=== PATIENT | female | born 1990 | race Caucasian/White ===

== ENCOUNTER 2021-12-03 05:45 | Observation (INO) | payer SELFPAY ==
[~2021-12-03] VITALS: Ht 152 cm; Wt 95.3 kg
[2021-12-03 07:00] VITALS: BP 113/71
--- NOTE | 2021-12-03 08:46 | NUR ---
PATIENT HAS BEEN SCREENED AND CATEGORIZED LOW NUTRITION RISK. PATIENT WILL BE SEEN WITHIN 7 DAYS OF ADMISSION. 12/10/21 REVIEWED BY RU DEL [address]
== END 2021-12-03 08:40 | disposition left against medical advice (07) ==
LOC: MFCC 05:45
PROVIDERS: ADMIT Obstetrics & Gynecology; ATTEND Obstetrics & Gynecology
DX: O62.9 Abnormality of forces of labor, unspecified (principal); Z20.822 Contact with and (suspected) exposure to COVID-19; Z3A.00 Weeks of gestation of pregnancy not specified
CPT/HCPCS: G0378

== ENCOUNTER 2021-12-08 17:32 | Inpatient (IN) | payer MEDICAID ==
[~2021-12-08] VITALS: Ht 162.6 cm; Wt 76.0 kg
[2021-12-08] MEDS ORDERED: LACTATED RINGERS 1,000 ML IV SCH ×2 (18:00→18:45)
[2021-12-08] MEDS ORDERED: METHYLERGONOVINE 0.2 MG/ML AMP IM PRN ×2 (18:45→19:25)
[2021-12-08] MEDS ORDERED: MORPHINE SULFATE 5 MG/ML VIAL IVP PRN ×2 (18:45→19:45)
[2021-12-08] MEDS ORDERED: HYDROcodone/APAP 5/325 MG 1 TAB TAB PO PRN ×2 (19:25)
[2021-12-08] MEDS ORDERED: MEASLES, MUMPS, AND RUBELLA 1 VIAL SQVAC ONE (19:25)
[2021-12-08] MEDS ORDERED: OXYTOCIN 10 UNITS/ML VIAL IM PRN (19:25)
[2021-12-08] MEDS ORDERED: DOCUSATE SODIUM 100 MG GELCAP PO PRN (19:25)
[2021-12-08] MEDS ORDERED: IBUPROFEN 800 MG TAB PO PRN (19:25)
[2021-12-08] MEDS ORDERED: BENZOCAINE/MENTHOL 20%-0.5% 60 GM CAN TP PRN (19:25)
[2021-12-08] MEDS ORDERED: METHYLERGONOVINE 0.2 MG TAB PO PRN (19:25)
[2021-12-08] MEDS ORDERED: SIMETHICONE 80 MG TAB.CHEW PO PRN (19:25)
[2021-12-08] MEDS ORDERED: bisacodyL 5 MG TABEC PO PRN (19:25)
[2021-12-08] MEDS ORDERED: IBUPROFEN 600 MG TAB PO PRN (19:25)
[2021-12-08] MEDS ORDERED: MORPHINE SULFATE 10 MG/ML VIAL ONE ×2 (20:03→23:07)
[2021-12-08] MEDS: ONDANSETRON 4 MG/2 ML VIAL IVP PRN (20:30)
[2021-12-08 22:00] LABS: BASOPHILS # (AUTO) 0.1 K/uL (0.00-0.22); BASOPHILS % (AUTO) 0.8 % (0.0-2.0); EOSINOPHILS % (AUTO) 0.5 % (0.0-4.0); HEMATOCRIT 27.8 % (36-48); LYMPHOCYTES # (AUTO) 1.6 K/uL (2.5-16.5); LYMPHOCYTES % (AUTO) 17.8 % (20.5-51.1); MEAN CORPUSCULAR HEMOGLOBIN 24 pg (27-31); MEAN CORPUSCULAR HGB CONC 32 g/dL (33-37); MEAN CORPUSCULAR VOLUME 72.6 fL (80-94); MONOCYTES # (AUTO) 0.4 K/uL (0.8-1.0); MONOCYTES % (AUTO) 4.8 % (1.7-9.3); NEUTROPHILS # (AUTO) 6.8 K/uL (1.8-7.7); NEUTROPHILS % (AUTO) 76.1 % (42.2-75.2); PLATELET COUNT (AUTO) 303 K/uL (140-450); RED BLOOD CELL COUNT(AUTO) 3.83 MIL/uL (4.20-5.40); RED CELL DISTRIBUTION WIDTH 15.8 % (11.6-13.7); WHITE BLOOD COUNT (AUTO) 8.9 K/uL (4.8-10.8)
[2021-12-08 22:16] LABS: APPEARANCE,URINE CLEAR (CLEAR); BARBITURATE, URINE NEGATIVE ng/ml (NEG <=200); BENZODIAZEPINE, URINE NEGATIVE ng/mL (NEG <=200); BILIRUBIN,URINE 2+ (NEGATIVE); BLOOD, URINE 3+ (NEGATIVE); CANNABINOID, URINE NEGATIVE ng/mL (NEG <=50); COCAINE, URINE NEGATIVE ng/mL (NEG <=300); COLOR,URINE YELLOW (YELLOW); LEUKOCYTE ESTERASE ,URINE TRACE (NEGATIVE); NITRITE, URINE NEGATIVE (NEGATIVE); OPIATE, URINE POSITIVE ng/mL (NEG <=2000); PHENCYCLIDINE SCREEN,URINE NEGATIVE ng/mL (NEG <=25); UGLUCOSE NEGATIVE (NEGATIVE)
[2021-12-08 22:18] LABS: PROTHROMBIN TIME 9.2 secs (10.8-13.4)
[2021-12-08 22:22] LABS: ANION GAP 14.7 (8-16); CARBON DIOXIDE 21.6 mmol/L (21-32); CREATININE 0.8 mg/dL (0.6-1.3); POTASSIUM 4.3 mmol/L (3.5-5.1); TOTAL BILIRUBIN 0.6 mg/dL (0.0-1.0)
[2021-12-08 22:37] LABS: RBC,URINE >100 /HPF (0-5); WBC,URINE 20-60 /HPF (0-5); YEAST,URINE Few /HPF (None Seen)
[2021-12-09 00:16] VITALS: BP 111/78
[2021-12-09] MEDS ORDERED: MORPHINE SULFATE 10 MG/ML VIAL ONE (02:26)
[2021-12-09 02:34] VITALS: BP 115/67
[2021-12-09] MEDS: ONDANSETRON 4 MG/2 ML VIAL IVP PRN (02:35)
--- NOTE | 2021-12-09 06:27 | NUR ---
PATIENT HAS BEEN SCREENED AND CATEGORIZED LOW NUTRITION RISK. PATIENT WILL BE SEEN WITHIN 7 DAYS OF ADMISSION. 12/15/[address]
[2021-12-09] MEDS ORDERED: ceFAZolin 2,000 MG VIAL ONE (06:29)
[2021-12-09] MEDS ORDERED: METOCLOPRAMIDE 10 MG/2 ML INJ VIAL ONE (07:00)
[2021-12-09] MEDS ORDERED: ONDANSETRON 4 MG/2 ML VIAL ONE (07:00)
[2021-12-09] MEDS ORDERED: GLYCOPYRROLATE 0.2 MG/ML VIAL ONE (07:00)
[2021-12-09] MEDS ORDERED: PHENYLEPHRINE 10 MG/ML VIAL ONE (07:00)
[2021-12-09] MEDS ORDERED: MORPHINE PRES FREE 10 MG/10 ML AMP IV ONE (07:01)
[2021-12-09] MEDS ORDERED: MIDAZOLAM 2 MG/2 ML VIAL ONE (07:02)
[2021-12-09] MEDS ORDERED: KETAMINE 500 MG/5 ML VIAL ONE (07:02)
[2021-12-09] MEDS ORDERED: OXYTOCIN 20 UNITS/LR PREMIX 1,000 ML IV ONE ×2 (07:25→17:02)
[2021-12-09] MEDS ORDERED: NALBUPHINE 10 MG/ML AMP IVP PRN (08:25)
[2021-12-09] MEDS ORDERED: ONDANSETRON 4 MG/2 ML VIAL IVP PRN (08:25)
[2021-12-09] MEDS ORDERED: NALOXONE 0.4 MG/ML VIAL IVP PRN ×3 (08:25)
[2021-12-09] MEDS: diphenhydrAMINE 50 MG/ML VIAL IVP PRN ×3 (08:53→22:08)
[2021-12-09] MEDS: OXYTOCIN 20 UNITS in LACTATED RINGERS 1,000 ML IV SCH ×2 (08:55→09:20)
[2021-12-09] MEDS: KETOROLAC 30 MG/ML VIAL IM/IVP SCH ×3 (12:02→23:53)
[2021-12-10] MEDS ORDERED: OXYTOCIN 20 UNITS/LR PREMIX 1,000 ML IV ONE (01:31)
[2021-12-10] MEDS ORDERED: HYDROcodone/APAP 5/325 MG 1 TAB TAB PO PRN (02:00)
[2021-12-10] MEDS ORDERED: IBUPROFEN 800 MG TAB PO PRN (02:00)
[2021-12-10 06:44] LABS: BASOPHILS % (AUTO) 0.2 % (0.0-2.0); EOSINOPHILS # (AUTO) 0.1 K/uL (0-0.4); EOSINOPHILS % (AUTO) 0.7 % (0.0-4.0); HEMOGLOBIN 7.2 g/dL (12.0-16.0); LYMPHOCYTES % (AUTO) 13.7 % (20.5-51.1); MEAN CORPUSCULAR HEMOGLOBIN 24 pg (27-31); MEAN CORPUSCULAR HGB CONC 33 g/dL (33-37); MEAN CORPUSCULAR VOLUME 72.3 fL (80-94); MONOCYTES # (AUTO) 0.5 K/uL (0.8-1.0); NEUTROPHILS # (AUTO) 5.9 K/uL (1.8-7.7); NEUTROPHILS % (AUTO) 78.4 % (42.2-75.2); PLATELET COUNT (AUTO) 207 K/uL (140-450); RED BLOOD CELL COUNT(AUTO) 3.04 MIL/uL (4.20-5.40); RED CELL DISTRIBUTION WIDTH 15.3 % (11.6-13.7); WHITE BLOOD COUNT (AUTO) 7.6 K/uL (4.8-10.8)
[2021-12-10] MEDS ORDERED: SODIUM FERRIC GLUCONATE 125 MG in NACL 0.9% 100 ML IV SCH (10:20)
[2021-12-10] MEDS: HYDROcodone/APAP 5/325 MG 1 TAB TAB PO PRN ×2 (12:17→20:59)
[2021-12-10] MEDS: SODIUM FERRIC GLUCONATE 125 MG in NACL 0.9% 100 ML IV SCH (12:31)
[2021-12-11] MEDS ORDERED: CAMERA MC ONE ×2 (03:57→06:53)
[2021-12-11 07:37] LABS: HEMATOCRIT 23.9 % (36-48); HEMOGLOBIN 7.8 g/dL (12.0-16.0)
[2021-12-11] MEDS: HYDROcodone/APAP 5/325 MG 1 TAB TAB PO PRN (11:45)
[2021-12-11] MEDS: SODIUM FERRIC GLUCONATE 125 MG in NACL 0.9% 100 ML IV SCH (11:47)
== END 2021-12-11 19:00 | disposition home or self-care (01) | DRG 540 ==
LOC: MFCC 17:32 → OBSVTOIN 12-09 07:50 → MFCC 12-09 09:25
PROVIDERS: ADMIT Obstetrics & Gynecology; ATTEND Obstetrics & Gynecology
PROC: 10D00Z1 Extraction of Products of Conception, Low, Open Approach (ICD-10-PCS; principal; 2021-12-09 07:00)
DX: O34.211 Maternal care for low transverse scar from previous cesarean delivery (principal); D62 Acute posthemorrhagic anemia; D50.9 Iron deficiency anemia, unspecified; O32.1XX0 Maternal care for breech presentation, not applicable or unspecified; O42.913 Preterm premature rupture of membranes, unspecified as to length of time between rupture and onset of labor, third trimester; Z20.822 Contact with and (suspected) exposure to COVID-19; O77.0 Labor and delivery complicated by meconium in amniotic fluid; Z37.0 Single live birth; Z3A.36 36 weeks gestation of pregnancy; O99.02 Anemia complicating childbirth
CPT/HCPCS: G0378 ×7; 36415; 76805; 80053; 80305; 81001; 85018; 85025; 85610; 85730; 86592; 86762; 86886; 86900; 86901; 87086; 87340; 87653-90; J0690; J1200; J1885; J2250; J2270; J2370; J2405; J2590; J2765; J2916; J3490; J7060; J7120; Q0092; Q0163

== ENCOUNTER 2023-09-30 19:16 | Emergency (ER) | payer MEDICAID, OTHER ==
[~2023-09-30] VITALS: Ht 154.9 cm; Wt 106.8 kg
[2023-09-30 19:30] VITALS: BP 121/61; PULSE 85; RESP 18; TEMP 98; O2SAT 99
[2023-09-30] MEDS: KETOROLAC 60 MG/2 ML VIAL IM ONE (21:10)
[2023-09-30] MEDS ORDERED: IBUP-2213 PO (21:16)
[2023-09-30] MEDS ORDERED: PHEN-1877 PO (21:16)
[2023-09-30] MEDS ORDERED: CIPR500T4 PO (21:16)
== END 2023-09-30 21:21 | disposition home or self-care (01) ==
LOC: MED 19:16
DX: N39.0 Urinary tract infection, site not specified (principal); Z98.890 Other specified postprocedural states
CPT/HCPCS: 81002; 81025; 96372; 99283; J1885